=== PATIENT | female | born 1990 | race Caucasian/White ===

== ENCOUNTER 2017-07-25 21:54 | Emergency (ER) | payer OTHER ==
[2017-07-26] MEDS ORDERED: Aspirin Low Dose CHEW TAB* 81 MG PO ONE (02:23)
[2017-07-26 02:59] LABS: Hematocrit 41 % (35-47); Hemoglobin 13.6 g/dl (12.0-16.0); Mean Corpuscular HGB Conc 33 g/dl (31-36); Mean Corpuscular Hemoglobin 28 pg (27-31); Mean Corpuscular Volume 84 fL (80-97); Mean Platelet Volume 8 um3 (7.4-10.4); Red Blood Count 4.92 10^6/ul (4.0-5.4); Red Cell Distribution Width 14 % (10.5-15); White Blood Count 8.1 10^3/ul (3.5-10.8)
[2017-07-26 03:13] LABS: ALT 19 U/L (7-52); AST 20 U/L (13-39); Albumin 4.6 g/dL (3.2-5.2); Alkaline Phosphatase 62 U/L (34-104); Anion Gap 5 mmol/L (2-11); BUN/Creatinine Ratio 11.5 (8-20); Blood Urea Nitrogen 9 mg/dL (6-24); CO2 Carbon Dioxide 27 mmol/L (22-32); Calcium 9.4 mg/dL (8.6-10.3); Chloride 105 mmol/L (101-111); EGFR African American 115.7 (>60); Globulin 2.9 g/dL (2-4); Glucose 86 mg/dL (70-100); Potassium 3.7 mmol/L (3.5-5.0); Sodium 137 mmol/L (133-145); Total Protein 7.5 g/dL (6.4-8.9)
[2017-07-26 05:27] VITALS: BP 106/65
--- NOTE | 2017-07-26 07:58 | ED ---
Gaurav Goodrich Rebecca, scribed for Johnny Price MD on 07/26/17 at 0225 . HPI Chest Pain - HPI Summary HPI Summary: Pt is a 27 y/o F who presents to ED c/o left lower chest pain. Sx began about 5 days ago and have been intermittent since onset, occurring about 2-3 times every day. Each episode lasts less than 1 minute and is described as sharp pain. Pt reports no matter to when the episodes occur. Sx aggravated by nothing , alleviated by spontaneous resolution, unchange dby laying down and sitting up. Additionally reports difficulty taking a deep breath when pain is present. Denies diaphoresis, SOB, edema and cough. No recent illness. Called [facility] who adivsed that she be evaluated by [facility] ED. - History of Current Complaint Chief Complaint: EDChestWallPain Time Seen by Provider: 07/26/17 02:10 Hx Obtained From: Patient Onset/Duration: Started Days Ago Timing: Intermittent Current Severity: None Pain Intensity: 0 Pain Scale Used: 0-10 Numeric Chest Pain Location: Left Lateral - Lower left Chest Pain Radiates: No Character: Sharp/Stabbing Aggravating Factor(s): Nothing Alleviating Factor(s): Spontaneous Resolution Associated Signs and Symptoms: Positive: Other: - Difficulty yazmin a deep rbeath when pain is present. Negative: Shortness of Breath, Diaphoresis, Cough , Edema - Allergy/Home Medications Allergies/Adverse Reactions: Allergies Allergy/AdvReac Type Severity Reaction Status Date / Time No Known Allergies Allergy Verified 07/25/17 21:55 PMH/Surg Hx/FS Hx/Imm Hx Previously Healthy: Yes Endocrine/Hematology History: Denies: Hx Diabetes Cardiovascular History: Denies: Hx Hypertension Respiratory History: Denies: Hx Asthma Infectious Disease History: No Infectious Disease History: Denies: Traveled Outside the [place] in Last 30 Days - Family History Known Family History: Negative: Hypertension, Diabetes - Social History Occupation: Student Alcohol Use: Occasionally Substance Use Type: Reports: None Smoking Status (MU): Never Smoked Tobacco Review of Systems Negative: Skin Diaphoresis Positive: Chest Pain - Intermittent Positive: Other - Difficulty taking a deep breath when pain is present. Negative: Shortness Of Breath, Cough Negative: Edema All Other Systems Reviewed And Are Negative: Yes Physical Exam - Summary Physical Exam Summary: The patient is well-nourished in no acute distress and in no acute pain. The skin is warm and dry and skin color reflects adequate perfusion. HEENT: The head is normocephalic and atraumatic. The pupils are equal and reactive. The conjunctivae are clear and without drainage. Nares are patent and without drainage. Mouth reveals moist mucous membranes and the throat is without erythema and exudate. The external ears are intact. The ear canals are patent and without drainage. The tympanic membranes are intact. Neck is supple with full range of motion and non-tender. Respiratory: Chest is non-tender. Lungs are clear to auscultation and breath sounds are symmetrical and equal. Cardiovascular: Hear is regular rate and rhythm. There is no murmur or rub auscultated. There is no peripheral edema and pulses are symmetrical and equal. Abdomen: The abdomen is soft and non-tender. There are normal bowel sounds heard in all four quadrants and there is no organomegaly palpated. Musculoskeletal: There is no back pain noted. Extremities are non-tender with full range of motion. There is good capillary refill. There is no peripheral edema or calf tenderness elicited. Neurological: Patient is alert and oriented to person, place and time. Psychiatric: The patient has an appropriate affect and does not exhibit any anxiety or depression. Triage Information Reviewed: Yes Vital Signs On Initial Exam: Initial Vitals Temp Pulse Resp BP Pulse Ox 98.1 F 76 18 123/88 98 07/25/17 21:55 07/25/17 21:55 07/25/17 21:55 07/25/17 21:55 07/25/17 21:55 Vital Signs Reviewed: Yes Diagnostics - Vital Signs Vital Signs Temp Pulse Resp BP Pulse Ox 07/26/17 01:31 98.4 F 58 117/66 100 07/26/17 00:10 98.1 F 62 18 119/71 100 07/25/17 21:55 98.1 F 76 18 123/88 98 - Laboratory Lab Results: Lab Results 07/26/17 07/26/17 07/26/17 Range/Units 02:40 02:40 02:40 WBC 8.1 (3.5-10.8) 10^3/ul RBC 4.92 (4.0-5.4) 10^6/ul Hgb 13.6 (12.0-16.0) g/dl Hct 41 (35-47) % MCV 84 (80-97) fL MCH 28 (27-31) pg MCHC 33 (31-36) g/dl RDW 14 (10.5-15) % Plt Count 299 (150-450) 10^3/ul MPV 8 (7.4-10.4) um3 Neut % (Auto) 50.9 (38-83) % Lymph % (Auto) 34.5 (25-47) % Wetzel % (Auto) 12.3 H (1-9) % Eos % (Auto) 1.8 (0-6) % Baso % (Auto) 0.5 (0-2) % Absolute Neuts (auto) 4.1 (1.5-7.7) 10^3/ul Absolute Lymphs (auto) 2.8 (1.0-4.8) 10^3/ul Absolute Monos (auto) 1.0 H (0-0.8) 10^3/ul Absolute Eos (auto) 0.1 (0-0.6) 10^3/ul Absolute Basos (auto) 0 (0-0.2) 10^3/ul Absolute Nucleated RBC 0 10^3/ul Nucleated RBC % 0 INR (Anticoag Therapy) (0.89-1.11) D-Dimer, Quantitative (Less Than 230) ng/mL Sodium 137 (133-145) mmol/L Potassium 3.7 (3.5-5.0) mmol/L Chloride 105 (101-111) mmol/L Carbon Dioxide 27 (22-32) mmol/L Anion Gap 5 (2-11) mmol/L BUN 9 (6-24) mg/dL Creatinine 0.78 (0.51-0.95) mg/dL Est GFR ( Amer) 115.7 (>60) Est GFR (Non-Af Amer) 90.0 (>60) BUN/Creatinine Ratio 11.5 (8-20) Glucose 86 (70-100) mg/dL Lactic Acid (0.5-2.0) mmol/L Calcium 9.4 (8.6-10.3) mg/dL Total Bilirubin 0.50 (0.2-1.0) mg/dL AST 20 (13-39) U/L ALT 19 (7-52) U/L Alkaline Phosphatase 62 (34-104) U/L Troponin I 0.00 (<0.04) ng/mL B-Natriuretic Peptide 23 ( - 100) pg/mL Total Protein 7.5 (6.4-8.9) g/dL Albumin 4.6 (3.2-5.2) g/dL Globulin 2.9 (2-4) g/dL Albumin/Globulin Ratio 1.6 (1-3) Beta HCG, Quant < 0.60 mIU/mL 07/26/17 07/26/17 Range/Units 02:40 02:40 WBC (3.5-10.8) 10^3/ul RBC (4.0-5.4) 10^6/ul Hgb (12.0-16.0) g/dl Hct (35-47) % MCV (80-97) fL MCH (27-31) pg MCHC (31-36) g/dl RDW (10.5-15) % Plt Count (150-450) 10^3/ul MPV (7.4-10.4) um3 Neut % (Auto) (38-83) % Lymph % (Auto) (25-47) % Wetzel % (Auto) (1-9) % Eos % (Auto) (0-6) % Baso % (Auto) (0-2) % Absolute Neuts (auto) (1.5-7.7) 10^3/ul Absolute Lymphs (auto) (1.0-4.8) 10^3/ul Absolute Monos (auto) (0-0.8) 10^3/ul Absolute Eos (auto) (0-0.6) 10^3/ul Absolute Basos (auto) (0-0.2) 10^3/ul Absolute Nucleated RBC 10^3/ul Nucleated RBC % INR (Anticoag Therapy) 0.98 (0.89-1.11) D-Dimer, Quantitative < 200 (Less Than 230) ng/mL Sodium (133-145) mmol/L Potassium (3.5-5.0) mmol/L Chloride (101-111) mmol/L Carbon Dioxide (22-32) mmol/L Anion Gap (2-11) mmol/L BUN (6-24) mg/dL Creatinine (0.51-0.95) mg/dL Est GFR ( Amer) (>60) Est GFR (Non-Af Amer) (>60) BUN/Creatinine Ratio (8-20) Glucose (70-100) mg/dL Lactic Acid 0.6 (0.5-2.0) mmol/L Calcium (8.6-10.3) mg/dL Total Bilirubin (0.2-1.0) mg/dL AST (13-39) U/L ALT (7-52) U/L Alkaline Phosphatase (34-104) U/L Troponin I (<0.04) ng/mL B-Natriuretic Peptide ( - 100) pg/mL Total Protein (6.4-8.9) g/dL Albumin (3.2-5.2) g/dL Globulin (2-4) g/dL Albumin/Globulin Ratio (1-3) Beta HCG, Quant mIU/mL Result Diagrams: 07/26/17 02:40 07/26/17 02:40 Lab Statement: Any lab studies that have been ordered have been reviewed, and results considered in the medical decision making process. - Radiology CXR Xray Interpretation: No Acute Changes - No PTX or PNA. Radiology Interpretation Completed By: ED Physician - EKG 0235 Cardiac Rate: NL - 73 bpm EKG Rhythm: Sinus Rhythm ST Segment: Normal EKG Interpretation: No ST elevations, poor R wave progression Re-Evaluation - Re-Evaluation First Eval Re-Evaluation Time: 04:51 Change: Improved Comment: Discussed reuslts and the pt is currently asymptomatic. Chest Pain Course/Dx - Course Assessment/Plan: Pt is a 27 y/o F who presents to ED c/o left lower chest pain. Sx began about 5 days ago and have been intermittent since onset, occurring about 2-3 times every day. Each episode lasts less than 1 minute and is described as sharp pain. Pt reports no matter to when the episodes occur. Sx aggravated by nothing, alleviated by spontaneous resolution, unchange dby laying down and sitting up. Additionally reports difficulty taking a deep breath when pain is present. Denies diaphoresis, SOB, edema and cough. No recent illness. Called [facility] who adivsed that she be evaluated by [facility] ED. CXR reveals no acute findings and the EKG is sinus rhythm with no STEMI. Troponin of 0.00, D-Dimer < 200, WBC of 8.1. In the ED course, pt was given ASA which improved sx. She will be D/C to home with Dx of pleuritic chest pain and a follow up with her PCP. She understands and agrees. Elevated BP noted and advised to f/u with PCP. - Chest Pain Differential Diagnosis/HQI/PQRI: Acute OK, Pulmonary Embolism, Other: - pleurisy , pneumothorax - Diagnoses Provider Diagnoses: Pleuritic chest pain Discharge - Discharge Plan Condition: Stable Disposition: HOME Patient Education Materials: Pleurisy (ED) Referrals: Beth Burgess DO [Primary Care Provider] - 3 Days Additional Instructions: Use Ibuprofen as directed. The documentation as recorded by the Gaurav harris Rebecca accurately reflects the service I personally performed and the decisions made by , Johnny Price MD.
--- NOTE | 2017-07-26 08:03 | RAD ---
HISTORY: Chest pain, pain with inspiration COMPARISONS: None VIEWS: 4: Frontal dual-energy and lateral views of the chest. FINDINGS: CARDIOMEDIASTINAL SILHOUETTE: The cardiomediastinal silhouette is normal. ALISA: The alisa are normal. PLEURA: The costophrenic angles are sharp. No pleural abnormalities are noted. LUNG PARENCHYMA: The lungs are clear. ABDOMEN: The upper abdomen is clear. There is no subphrenic gas. BONES AND SOFT TISSUES: No bone or soft tissue abnormalities are noted. OTHER: None. IMPRESSION: NO ACTIVE CARDIOPULMONARY DISEASE.
== END 2017-07-26 05:27 | disposition home or self-care (01) ==
LOC: ED 21:54
DX: R07.89 Other chest pain (principal)
CPT/HCPCS: 36415; 71020; 80053; 83605; 83880; 84484; 84702; 85025; 85379; 85610; 93005; 99283; A9270-GY